=== PATIENT | male | born 1995 | race Hispanic/Latino ===

== ENCOUNTER 2024-06-17 11:36 | Emergency (ER) | payer SELFPAY ==
[2024-06-17 12:20] VITALS: PULSE 67; RESP 18; TEMP 98.3; O2SAT 99
[2024-06-17] MEDS ORDERED: CLARITIN-D 121 EACH PO (13:56)
[2024-06-17] MEDS ORDERED: MUCINEX DM ER1 EACH PO (13:58)
[2024-06-17] MEDS ORDERED: ONDANSETRON ODT4 MG PO (14:07)
== END 2024-06-17 14:08 | disposition home or self-care (01) ==
LOC: FSED 11:43
DX: R50.9 Fever, unspecified (principal); J06.9 Acute upper respiratory infection, unspecified; B34.9 Viral infection, unspecified; Z11.52 Encounter for screening for COVID-19
CPT/HCPCS: 0223U; 83518; 87400; 99282